=== PATIENT | female | born 1970 | race Two or more races ===

== ENCOUNTER 2023-10-26 16:30 | Emergency (ER) | payer OTHER ==
[~2023-10-26] VITALS: Ht 170.2 cm; Wt 72.6 kg
[2023-10-26] MEDS ORDERED: PAXIL20 MG (16:56)
[2023-10-26] MEDS ORDERED: LOSARTAN-HCTZ1 EACH PO (16:56)
[2023-10-26] MEDS ORDERED: PREVACID30 MG (16:56)
[2023-10-26] MEDS ORDERED: ONDANSETRON HCL 2 MG/ML VIAL ONE (17:55)
[2023-10-26] MEDS ORDERED: FAMOtidine 200mg/20ml VIAL ONE (17:56)
[2023-10-26] MEDS ORDERED: ONDANSETRON HCL 2 MG/ML VIAL IV ONE (18:00)
[2023-10-26] MEDS ORDERED: 0.9 % SODIUM CHLORIDE 1,000 ML IV ONE (18:00)
[2023-10-26] MEDS ORDERED: FAMOTIDINE/PF 20 MG/2 ML VIAL IV PUSH ONE (18:00)
[2023-10-26 18:31] LABS: PH,URINE 5.5 (5.0-8.0); URINE APPEARANCE Clear; URINE BILIRRUBIN Negative (NEGATIVE); URINE BLOOD Negative; URINE COLOR Yellow; URINE GLUCOSE Negative (NEGATIVE); URINE LEUKOCYTE Negative; URINE NITRATE Negative; URINE PROTEIN 30 (NEGATIVE)
[2023-10-26 18:33] LABS: URINE BACTERIA 277.1 uL (0.0-1933); URINE EPITHELIAL CELLS 31.3 uL (0.0-38.8); URINE RBC 25.4 uL (0.0-20.8); URINE WBC 12.2 uL (0.0-23.2)
[2023-10-26 18:34] LABS: HEMATOCRIT 37.3 % (36.0-45.00); HEMOGLOBIN 12.5 g/dL (12.0-15.00); MEAN CELL VOLUME 80.5 fL (80.00-100.00); MEAN CORPUSCULAR HEMOGLOBIN 26.9 pg (27.00-32.0); MEAN CORPUSCULAR HGB CONC 33.5 g/dl (32.0-36.0); PLATELET COUNT 219 K/uL (150-450); RED BLOOD COUNT 4.64 M/uL (4.00-6.00); RED CELL DISTRIBUTION WIDTH 15.1 % (11.5-14.5)
[2023-10-26 19:11] LABS: ALBUMIN 3.9 gm/dL (3.4-5.0); BILIRUBIN TOTAL 0.66 mg/dL (0.3-1.2); CALCIUM 9.7 mg/dL (8.5-10.1); CREATININE SERUM 0.68 mg/dL (0.55-1.02); GFR 90.86; GLOBULINA 4.3 G/DL (2.4-3.5); POTASSIUM 3.65 mEq/L (3.5-5.1); TOTAL PROTEIN 8.2 gm/dL (6.4-8.2)
[2023-10-26] MEDS ORDERED: KETOROLAC TROMETHAMINE 30 MG VIAL ONE (22:57)
[2023-10-26] MEDS ORDERED: KETOROLAC TROMETHAMINE 30 MG VIAL IV ONE (23:00)
== END 2023-10-27 00:46 | disposition home or self-care (01) ==
LOC: ER 16:31
PROVIDERS: Emergency Medicine
DX: K52.9 Noninfective gastroenteritis and colitis, unspecified (principal); R11.10 Vomiting, unspecified; Z20.822 Contact with and (suspected) exposure to COVID-19; I10 Essential (primary) hypertension; E11.9 Type 2 diabetes mellitus without complications